=== PATIENT | female | born 1975 | race Caucasian/White ===

== ENCOUNTER 2016-09-24 20:05 | Emergency (ER) | payer BC ==
[2016-09-24 20:16] VITALS: RESP 16; TEMP 96.6
--- NOTE | 2016-09-24 20:28 | PDOC ---
Lower Extremity Problem HPI - General Chief Complaint: Lower Extremity Problem/Injury Stated Complaint: Left leg swelling Date Seen by Provider: 09/24/16 Time Seen by Provider: 20:23 Source: POSITIVE: Patient, Spouse, RN/MD Exam Limitations: POSITIVE: No limitations Nurse's Notes Reviewed & Considered: Yes - History of Present Illness Initial Comments: Patient comes in today with a chief complaint of left lower extremity swelling. Patient was seen at the hospital in [facility] today. Her swelling in her left lower extremity began on Tuesday. After she has been up on her feet all day her leg is swollen but the swelling goes down at night. She is presently on request for any DVT that occurred last January. She is factor V Leiden deficient. She denies any shortness of breath or chest pain. No fever chills or sweats. No nausea vomiting or diarrhea. Body Location Affected: REPORTS: Lower Extremity (L) Timing: REPORTS: Constant Duration: >1 week Severity: Moderate Recent Injury: REPORTS: No Location at Time of Onset: REPORTS: Home Quality: REPORTS: Pressure Modifying Factors: REPORTS: Walking, Rest Similar Symptoms Previously: Yes (DVT left leg) Recent Care Received: REPORTS: Denies Any Prior Injuries Related to Current Complaint?: Yes (DVT left leg) - Patient Home Medications Home Medications: Home Medications Apixaban [Eliquis] 5 mg PO BID 09/24/16 - Patient Allergies Allergies/Adverse Reactions: Allergies Allergy/AdvReac Type Severity Reaction Status Date / Time morphine Allergy NAUSEA Verified 09/24/16 20:20 Past Medical History - heen HEENT History: Denies History Cardiovascular History: DVTs, Other (please comment) Additional Cardiovasular History: Hx of DVT with first ...at this time pt was also diagnosed with Factor V Leiden (pt. states she is on an Aspirin 81mg daily regime for this). JAN 2016 DVT IN LEFT GROIN. Respiratory History: Denies History Gastrointestinal History: Denies History Genitourinary History: Denies History Endocrine History: Denies History Musculoskeletal History: Other (please comment) Prosthesis or Implant: No Additional Musculoskeletal History: Hx of Left Total Knee replacement. Hx of Left Elbow repair x 2 -- hardware removal with second surgery. Neurological History: Denies History Blood Disorders: Other (please comment) Additional Blood Disorders History: Factor V Leiden Psychiatric History: Denies History Female Reproductive History: Denies History Obstetrical History: Denies History Cancer History: Denies History In Past Year Been Physically Harmed or Verbally Threatened: No History of MDRO: No Tobacco Use: Never Smoker Alcohol Use: None Substance Use Type: None Previous Surgical History: Yes Type / Date of Surgery: See Above. Anesthesia Reactions: No Malignant Hyperthermia: No Significant Family History: No pertinent family hx ROS - Limitations ROS Limitations: No Limitations Constitution: REPORTS: Denies Symptoms Cardiovascular: REPORTS: Denies Cardiac Symptoms Respiratory: REPORTS: Denies Resp Symptoms Neurological: REPORTS: Denies Neuro Symptoms Gastrointestinal: REPORTS: Denies GI Symptoms Endocrine: REPORTS: Denies Symptoms Musculoskeletal: REPORTS: Lower Extremity Swelling Genitourinary: REPORTS: Denies Symptoms Eyes: REPORTS: Denies Symptoms ENT: REPORTS: Denies Symptoms Skin: REPORTS: Denies Skin Symptoms Lympathic: REPORTS: Denies Lympathic Symptoms Immunologic: POSITIVE: Denies Symptoms Psychiatric: POSITIVE: Denies Psych Symptoms Lower Ext Problem Exam - General Appearance General Appearance: POSITIVE: Alert, Cooperative, No Acute Distress, No Evidence of Trauma - Extremities Lower Extremity: POSITIVE: Tenderness (Tenderness in her left Achilles swelling in her left foot and left lower extremity.), Swelling, Pedal Edema Joint Exam: POSITIVE: Joints Normal, Normal ROM, Normal Gait, Normal Weight Bearing Vascular: POSITIVE: No Vascular Compromise, Full Pulses, Equal Pulses - Neuro / Psych Neuro/Psych: POSITIVE: Sensation Normal, Motor Normal, Oriented to Person, Oriented to Place, Oriented to Time - Neck / Back / Pelvis Back / Neck: POSITIVE: Normal Inspection - Skin Skin: POSITIVE: Normal Color, Warm, Dry, No Rash - HEENT HEENT: POSITIVE: Head Inspection Nml, Eyes Inspection Nml, Ears Inspection Nml, Nose Inspection Nml, PERRL, EOMI - Respiratory / CVS Respiratory / CVS: POSITIVE: No Respiratory Distress, Breath Sounds Normal, Regular Rate/Rhythm, Heart Sounds Normal Peripheral Pulses: Dorsalis-pedis (R): 2+, Dorsalis-pedis (L): 2+ - Abdomen Abdomen: Soft: (All Quadrants), Normal Bowel Sounds: (All Quadrants), Denies Tenderness: (All Quadrants) Images - Uploaded Photos Uploaded Photos: Lower Ext Problem Progress - Results Reviewed by me Xrays/CTs/US Reviewed by me: Yes Discussed with Radiologist: Yes Lab Results Reviewed: Yes - Patient's Progress Re-Examine Time: 22:21 Status: POSITIVE: Improved MDM / ED Course: Patient was examined, IV started, blood drawn and sent to the lab for studies, radiographic studies were obtained. Findings: CBC is within normal limits, comprehensive metabolic panel is unremarkable, TSH is elevated greater than 5.8, free T4 is normal at 1.3, magnesium is normal, CT scan for PE protocol shows no pulmonary emboli present. Ultrasound of her left lower extremity shows no DVT present. Assessment: Edema of the left leg. Elevated TSH. Plan: Discharge home. Follow-up with primary care physician for further evaluation of thyroid. Patient Care Time - Estimated PCT Patient Care Time (In Minutes): 45 Vital Signs - Recent Vital Signs Vital Signs: Vital Signs (Last 8 hours) Temp Pulse Resp BP Pulse Ox 09/24/16 20:05 96.6 F L 84 16 114/82 97 - VS Reviewed Vital Signs Reviewed: Yes Discharge Clinical Impression: Swelling of left lower extremity Discharge Disposition: Discharged to Home Condition: Stable Patient Instructions Given at Discharge: Edema (ED)
[2016-09-24 20:29] LABS: BASOPHILS # (AUTO) 0.05 10*3/UL; BASOPHILS % (AUTO) 0.8 % (0-1); BLOOD UREA NITROGEN 19 mg/dL (7-22); BUN/CREATININE RATIO 23.75 (6-20); CALCIUM 9.3 mg/dL (8.7-10.7); EOSINOPHILS # (AUTO) 0.14 10*3/UL; EOSINOPHILS % (AUTO) 2.3 % (0-8); EST GLOMERULAR FILTRATION > 60 (>60 ml/min/1.73m(2)); HEMATOCRIT 41.8 % (37.0-47.0); HEMOGLOBIN 14.2 g/dL (12.0-16.0); LYMPHOCYTES # (AUTO) 1.99 10*3/uL; MEAN CORPUSCULAR HEMOGLOBIN 30.1 PG (27-31); MEAN CORPUSCULAR VOLUME 88.6 FL (81-99); MEAN PLATELET VOLUME 10.3 FL (7.4-12.2); MONOCYTES # (AUTO) 0.53 10*3/UL (0.3-0.8); MONOCYTES % (AUTO) 8.5 % (5-15); NEUTROPHILS # (AUTO) 3.47 10*3/UL; RED BLOOD COUNT 4.72 10^6/uL (4.20-5.40); SERUM ALBUMIN 4.4 g/dL (3.5-4.8)
[2016-09-24 20:30] LABS: PLATELET MORPHOLOGY COMMENT NORMAL MORPHOLOGY (NORM); RBC MORPHOLOGY COMMENT NORMAL MORPHOLOGY (NORM); WBC MORPHOLOGY COMMENT NORMAL MORPHOLOGY (NORM)
[2016-09-24 20:34] LABS: MAGNESIUM 1.9 mg/dL (1.6-2.4)
[2016-09-24 21:04] LABS: FREE T4 (FREE THYROXINE) 1.31 ng/dL (0.93-1.71)
== END 2016-09-24 22:39 | disposition home or self-care (01) ==
LOC: ER 20:05
DX: R22.42 Localized swelling, mass and lump, left lower limb (principal); R59.0 Localized enlarged lymph nodes; D68.51 Activated protein C resistance; R94.6 Abnormal results of thyroid function studies; Z86.718 Personal history of other venous thrombosis and embolism
CPT/HCPCS: 71275; 80053; 83735; 84439; 84443; 84703; 85025; 85610; 93971; 99282